=== PATIENT | male | born 1960 | race Caucasian/White ===

== ENCOUNTER 2017-12-29 09:37 | Emergency (ER) | END 2017-12-29 12:27 | disposition home or self-care (01) ==

== ENCOUNTER 2018-06-13 08:22 | Emergency (ER) | payer OTHER ==
[~2018-06-13] VITALS: Wt 90.0 kg
[~2018-06-13 08:22] MED LIST: BENA40TA56; CEPH-443 PO; CLON-379; FLUT9.9S NASAL; GLIP10TA14; HYDR25TA6; IBUP-1542 PO; METF-480; MULT-552 PO; ONDA4TAB35 PO; PSEU30TA38 PO
[2018-06-13 08:24] VITALS: BP 160/78; PULSE 79; RESP 18
--- NOTE | 2018-06-13 09:13 | ERD ---
ER Documentation Chief Complaint Chief Complaint FEET PAIN X 2 WEEK HPI 58-year-old male, with history of poorly controlled diabetes mellitus with neuropathy, presents to the emergency department, requesting a refill for medication and complaining of bilateral feet pain for 2 weeks. Otherwise, the patient denies nausea, no vomiting, no rashes, no foot ulcers, no headache, no chest pain. ROS All systems reviewed and are negative except as per history of present illness. Medications Home Meds Active Scripts Acetaminophen* (Tylenol*) 325 Mg Tablet, 2 TAB PO Q6 PRN for PAIN AND OR ELEVATED TEMP, #20 TAB Prov:WILL GONZALEZ MD 06/13/18 Metformin Hcl* (Metformin Hcl*) 850 Mg Tablet, 850 MG PO TID, #90 TAB Prov:WILL GONZALEZ MD 06/13/18 Simvastatin (Simvastatin) 20 Mg Tablet, 20 MG PO DAILY, #30 TAB Prov:WILL GONZALEZ MD 06/13/18 Glipizide* (Glipizide*) 10 Mg Tablet, 10 MG PO BID, #60 TAB Prov:WILL GONZALEZ MD 06/13/18 Benazepril Hcl* (Benazepril Hcl*) 20 Mg Tablet, 20 MG PO DAILY, #30 TAB Prov:WILL GONZALEZ MD 06/13/18 Cephalexin* (Keflex*) 500 Mg Capsule, 500 MG PO QID for 10 Days, CAP Prov:ARMINDA RESENDEZ NP 09/18/15 Multivitamins* (Once Daily*) 1 Tab Tablet, 1 TAB PO DAILY, #30 TAB Prov:ARMINDA RESENDEZ NP 09/18/15 Ondansetron Hcl* (Zofran* ODT) 4 mg -ODT Tab.disper, 4 MG PO Q8 PRN for NAUSEA AND/OR VOMITING, #30 TAB Prov:ARMINDA RESENDEZ NP 09/18/15 Fluticasone Propionate (Flonase Allergy Relief) 9.9 Ml Basehor.susp, 1 SPRAY NASAL BID, #1 BOTTLE TO EACH NOSTRIL Prov:SHANDA LUO PA-C 05/01/15 Pseudoephedrine Hcl* (Pseudoephedrine Hcl*) 30 Mg Tablet, 30 MG PO Q6 PRN for CONGESTION, #30 TAB Prov:SHANDA LUO PA-C 05/01/15 Ibuprofen* (Motrin*) 600 Mg Tab, 600 MG PO Q6, #30 TAB Prov:SHANDA LUO PA-C 05/01/15 Reported Medications Hydrochlorothiazide (Hydrochlorothiazide) 25 Mg Tablet 05/02/11 Benazepril Hcl* (Benazepril Hcl*) 40 Mg Tablet 05/02/11 Metformin* (Glucophage*) 850 Mg Tablet 05/02/11 Glipizide* (Glipizide*) 10 Mg Tablet 05/02/11 Clonidine Hcl* (Clonidine Hcl*) 0.1 Mg Tab 05/02/11 Allergies Allergies: Coded Allergies: No Known Drug Allergies (Verified Allergy, 05/02/11) PMhx/Soc History of Surgery: Yes (RT HAND 5TH DIGIT PARTIAL AMPUTATION 3RD DIGIT PARTIAL AMP) Anesthesia Reaction: No Hx Neurological Disorder: No Hx Respiratory Disorders: No Hx Cardiac Disorders: Yes (HTN) Hx Psychiatric Problems: No Hx Miscellaneous Medical Probl: Yes (DM) Hx Alcohol Use: No Hx Substance Use: No Hx Tobacco Use: No FmHx Family History: diabetes; No coronary disease Physical Exam Vitals Vital Signs Date Temp Pulse Resp B/P (MAP) Pulse Ox O2 O2 Flow FiO2 Time Delivery Rate 06/13/18 98.2 79 18 160/78 99 08:24 (105) Physical Exam Const: No acute distress Head: Atraumatic Eyes: Normal Conjunctiva ENT: Normal External Ears, Nose and Mouth. Neck: Full range of motion. No meningismus. Resp: Clear to auscultation bilaterally Cardio: Regular rate and rhythm, no murmurs Abd: Soft, non tender, non distended. Normal bowel sounds Skin: No petechiae or rashes Back: No midline or flank tenderness Ext: No cyanosis, or edema Neur: Awake and alert Psych: Normal Mood and Affect Results 24 hrs Laboratory Tests Test 06/13/18 09:13 Urine Color YELLOW Urine Clarity CLEAR Urine pH 7.0 Urine Specific Minetto 1.023 Urine Ketones NEGATIVE mg/dL Urine Nitrite NEGATIVE mg/dL Urine Bilirubin NEGATIVE mg/dL Urine Urobilinogen NEGATIVE mg/dL Urine Leukocyte Esterase NEGATIVE Kelli/ul Urine Hemoglobin NEGATIVE mg/dL Urine Glucose 3+ mg/dL Urine Total Protein NEGATIVE mg/dl Procedures/MDM Vital signs stable. Differential diagnosis considered include uncontrolled diabetes, infection, poor compliance with insulin and diet. Low suspicion for ketoacidosis or hyperosmolar status. During the ED course the patient remained stable, no new complaints. Results and clinical impression discussed with the patient who agrees with management. The patient is stable to be treated outpatient and will be discharged home a refill for his medications; some side effects of prescribed medications (headache, rash, nausea, vomiting, diarrhea, drowsiness, habituation, bleeding, hypertension, interactions with other medications) were reviewed. Follow up with the primary care provider in the next 48h has been recommended. If symptoms persist, worsen or new symptoms develop, then patient should return to the ED immediately. Instructions explained and given directly by me to the patient with acknowledgment and demonstrated understanding. Disclaimer: Inadvertent spelling and grammatical errors are likely due to EHR/dictation software use and do not reflect on the overall quality of patient care. Also, please note that the electronic time recorded on this note does not necessarily reflect the actual time of the patient encounter. Departure Diagnosis: Primary Impression: Uncontrolled diabetes mellitus Additional Impression: Diabetic neuropathy, type II diabetes mellitus Condition: Stable Additional Instructions: Muchas aneta por [facility] para [place] servicio. Esperamos que en [place] visita a la abby de emergencia [place] problema medico haya sido solucionado y que se sienta mucho mejor. Para estar seguros que [place] mejoria sigue en proceso, le pedimos el favor de hacer katherin naya de seguimiento medico con [place] doctor primario en los proximos 2-4 guzmán. Lleve con usted estos documentos y las medicinas recetadas. Si min sintomas empeoran, NO SE ESPERE, por favor regrese a abby de emergencia INMEDIATAMENTE. En christos que usted no tenga un mdico de atencin primaria: Llame al mdico o clnica comunitaria de referencia que aparece abajo carl las horas de consultorio para hacer katherin naya para que le vean. CLINICAS: [facility] [id number] [facility] [phone] [facility] [phone] [facility] [phone] [facility] [phone] [id number] [facility]. [phone] WILL DIZA MD Jun 13, 2018 09:13
[2018-06-13] MEDS ORDERED: BENA20TA4 PO (09:38)
[2018-06-13] MEDS ORDERED: ACET325T33 PO (09:38)
[2018-06-13] MEDS ORDERED: SIMV20TA2 PO (09:38)
[2018-06-13] MEDS ORDERED: GLIP10TA14 PO (09:38)
[2018-06-13] MEDS ORDERED: METF850T13 PO (09:38)
== END 2018-06-13 09:58 | disposition home or self-care (01) ==
LOC: FTE 08:22
DX: E11.40 Type 2 diabetes mellitus with diabetic neuropathy, unspecified (principal); I10 Essential (primary) hypertension; Z79.4 Long term (current) use of insulin
CPT/HCPCS: 81003; 99283